=== PATIENT | female | born 1960 | race Two or more races ===

== ENCOUNTER 2024-08-18 11:39 | Inpatient (IN) | payer BC ==
[~2024-08-18] VITALS: Ht 152.4 cm; Wt 122.5 kg
[2024-08-18] MEDS ORDERED: SYNTHROID112 MCG (11:57)
[2024-08-18] MEDS ORDERED: LOSARTAN-HCTZ1 EAC2 (11:57)
[2024-08-18] MEDS ORDERED: WELLBUTRIN XL300 MG (11:57)
[2024-08-18] MEDS ORDERED: MONTELUKAST SODI4 M1 (11:58)
[2024-08-18] MEDS ORDERED: LIPITOR40 MG (11:58)
[2024-08-18] MEDS ORDERED: PLAVIX75 MG (11:58)
[2024-08-18] MEDS ORDERED: FAMOtidine 10 MG/ML (4ML VIAL) IV ONE (12:30)
[2024-08-18] MEDS ORDERED: ONDANSETRON HCL 2 MG/ML VIAL IV ONE (12:30)
[2024-08-18] MEDS ORDERED: 0.9 % SODIUM CHLORIDE 1,000 ML IV ONE (12:30)
[2024-08-18 12:53] LABS: HEMATOCRIT 38.6 % (36.0-45.00); HEMOGLOBIN 12.9 g/dL (12.0-15.00); MEAN CELL VOLUME 79.7 fL (80.00-100.00); MEAN CORPUSCULAR HEMOGLOBIN 26.7 pg (27.00-32.0); MEAN CORPUSCULAR HGB CONC 33.5 g/dl (32.0-36.0); PLATELET COUNT 311 K/uL (150-450); RED BLOOD COUNT 4.84 M/uL (4.00-6.00)
[2024-08-18 13:29] LABS: ALBUMIN 3.3 gm/dL (3.4-5.0); BILIRUBIN TOTAL 0.61 mg/dL (0.3-1.2); CREATININE SERUM 0.49 mg/dL (0.55-1.02); GFR 127.14; GLOBULINA 4.3 G/DL (2.4-3.5); POTASSIUM 3.76 mEq/L (3.5-5.1); TOTAL PROTEIN 7.6 gm/dL (6.4-8.2)
[2024-08-18] MEDS ORDERED: MORPHINE SULFATE 4 MG/ML VIAL IV ONE (14:15)
[2024-08-18 17:46] LABS: ABG PH 7.405 (7.35-7.45)
[2024-08-18 17:47] LABS: ABG PO2 86.5 mmHg (80-100); ABG pCO2 46.8 mmHg (35-45); BASE EXCESS 3.2 mmol/l; BICARBONATE 28.7 mmol/l (23-25); SaO2 96.7 %; Tco2 30.1 mmol/l; allen test SATISFACTORY; o2 32 %; puncture site RADIAL RIGHT
[2024-08-18] MEDS ORDERED: 0.9 % SODIUM CHLORIDE 1,000 ML IV SCH (18:30)
[2024-08-18] MEDS ORDERED: IPRATROPIUM BROMIDE 0.5 MG/2.5 ML AMPUL.NEB IH SCH (18:32)
[2024-08-18] MEDS ORDERED: LEVALBUTEROL HCL 1.25 MG/3 ML SOLUTION IH SCH (18:33)
[2024-08-18] MEDS ORDERED: NITROGLYCERIN IN 5 % DEXTROSE 250 ML IV SCH (18:35)
[2024-08-18] MEDS ORDERED: ATORVASTATIN CALCIUM 40 MG TABLET PO SCH (18:36)
[2024-08-18] MEDS ORDERED: levoFLOXacin IN DEXTROSE 5 % 150 ML IV SCH (18:37)
[2024-08-18] MEDS ORDERED: ENOXAPARIN SODIUM 100 MG/ML SYRINGE SUBCUTANEO SCH (18:41)
[2024-08-18] MEDS ORDERED: INSULIN LISPRO 1,000 UNIT/10 ML UNITS SUBCUTANEO PRN (18:45)
[2024-08-18] MEDS ORDERED: ACETAMINOPHEN 500 MG GEL..CAP PO PRN (18:45)
[2024-08-18] MEDS ORDERED: ONDANSETRON HCL 4 MG in 0.9 % SODIUM CHLORIDE 50 ML IV PRN (18:45)
[2024-08-18] MEDS ORDERED: DEXTROSE 50 % IN WATER 0.5 G/ML DISP.SYRIN IV PRN (18:45)
[2024-08-18] MEDS ORDERED: TICAGRELOR 90 MG TABLET PO ONE (18:45)
[2024-08-18 20:06] LABS: INR 1.08; PROTHROMBIN TIME 11.7 SECONDS (9.0-11.5)
[2024-08-18 20:08] LABS: D DIMER 0.72 MG/L; PARTIAL THROMBOPLASTIN TIME 31.9 SECONDS (22.0-34.0)
[2024-08-18 20:50] VITALS: BP 145/68; O2SAT 94
[2024-08-18 20:51] VITALS: BP 145/68
[2024-08-18] MEDS ORDERED: PANTOPRAZOLE SODIUM 40 MG/VIAL VIAL IV SCH (21:18)
[2024-08-18 21:42] LABS: URINE APPEARANCE Clear; URINE BILIRRUBIN Negative (NEGATIVE); URINE BLOOD Negative; URINE COLOR Yellow; URINE GLUCOSE Negative (NEGATIVE); URINE KETONE 15 (NEGATIVE); URINE LEUKOCYTE Negative; URINE NITRATE Negative; URINE PROTEIN Negative (NEGATIVE); URINE UROBILINOGEN 0.2 E.U./dl
[2024-08-18 21:46] LABS: URINE BACTERIA 1069.6 uL (0.0-1933); URINE EPITHELIAL CELLS 38.3 uL (0.0-38.8); URINE RBC 10.2 uL (0.0-20.8); URINE WBC 40.8 uL (0.0-23.2)
[2024-08-18 21:53] LABS: URINE CAST 0.45 uL (0.0-1.40)
[2024-08-18 23:00] VITALS: BP 140/54; O2SAT 98
[2024-08-19] VITALS (15 sets, daily range): BP systolic 96–139; BP diastolic 53–73; O2SAT 94–99
[2024-08-19] MEDS ORDERED: TICAGRELOR 90 MG TABLET PO SCH (05:00)
[2024-08-19] MEDS ORDERED: LEVOTHYROXINE SODIUM 112 MCG TABLET PO SCH (06:00)
[2024-08-19] MEDS ORDERED: NITROGLYCERIN IN 5 % DEXTROSE 250 ML IV SCH (06:45)
[2024-08-19] MEDS ORDERED: BUTALB/ACETAMINOPHEN/CAFFEINE 1 TAB TABLET PO PRN (07:00)
[2024-08-19 07:16] LABS: CHOL HDL RATIO 2.5 (0-5.0); TSH 2.43 uIU/mL (0.358-3.74)
[2024-08-19] MEDS ORDERED: BUPROPION HCL 150 MG TABLET.SA PO SCH (09:00)
[2024-08-19] MEDS ORDERED: METOPROLOL SUCCINATE 25 MG TAB.SR.24H PO SCH (09:00)
[2024-08-19] MEDS ORDERED: PANTOPRAZOLE SODIUM 40 MG/VIAL VIAL IV SCH (09:00)
[2024-08-19] MEDS ORDERED: METHYLPREDNISOLONE SOD SUCC 40 MG VIAL IV SCH (13:00)
[2024-08-20] VITALS (11 sets, daily range): BP systolic 106–145; BP diastolic 56–78; O2SAT 95–97
[2024-08-20 05:29] LABS: HEMATOCRIT 34.7 % (36.0-45.00); HEMOGLOBIN 11.4 g/dL (12.0-15.00); MEAN CELL VOLUME 80.8 fL (80.00-100.00); MEAN CORPUSCULAR HEMOGLOBIN 26.5 pg (27.00-32.0); MEAN CORPUSCULAR HGB CONC 32.8 g/dl (32.0-36.0); PLATELET COUNT 312 K/uL (150-450); RED BLOOD COUNT 4.29 M/uL (4.00-6.00); RED CELL DISTRIBUTION WIDTH 14.6 % (11.5-14.5)
[2024-08-20 06:13] LABS: ALBUMIN 2.9 gm/dL (3.4-5.0); BILIRUBIN TOTAL 0.33 mg/dL (0.3-1.2); C-REACTIVE PROTEIN 12.2 MG/DL (0.00-0.29); CREATININE SERUM 0.48 mg/dL (0.55-1.02); GFR 130.2; GLOBULINA 4.1 G/DL (2.4-3.5); MAGNESIUM 2.5 mg/dL (1.8-2.4); PHOSPHOROUS 2.7 mg/dL (2.5-4.9); POTASSIUM 3.88 mEq/L (3.5-5.1)
[2024-08-20 06:32] LABS: MYCOPLASMA PNEUMONIAE IGM NON REACTIVE (NO REACTIVE)
[2024-08-20] MEDS ORDERED: LORATADINE 10 MG TABLET PO STA (10:58)
[2024-08-20] MEDS ORDERED: KETOROLAC TROMETHAMINE 30 MG VIAL IM SCH (13:30)
[2024-08-21 07:50] VITALS: BP 126/56; O2SAT 93
[2024-08-21] MEDS ORDERED: ENOXAPARIN SODIUM 40 MG/0.4 ML SYRINGE SUBCUTANEO SCH (09:00)
[2024-08-21] MEDS ORDERED: MEPERIDINE HCL/PF 25 MG/ML VIAL IM PRN (09:45)
[2024-08-21 11:35] VITALS: BP 134/63; O2SAT 97
[2024-08-21 16:00] VITALS: BP 119/57; O2SAT 95
[2024-08-21 16:18] VITALS: O2SAT 90
[2024-08-21 19:22] VITALS: O2SAT 90
[2024-08-22] VITALS (7 sets, daily range): BP systolic 143–179; BP diastolic 67–81; O2SAT 90–100
[2024-08-22] MEDS ORDERED: METHYLPREDNISOLONE SOD SUCC 40 MG VIAL IV SCH (13:00)
[2024-08-22 14:31] LABS: PLATELET ESTIMATE NORMAL (NORMAL)
[2024-08-23] VITALS (8 sets, daily range): BP systolic 140–158; BP diastolic 76–94; O2SAT 90–98
[2024-08-24] VITALS: BP 155/88; O2SAT 94
[2024-08-24 08:00] VITALS: BP 141/67; O2SAT 100
[2024-08-24] MEDS ORDERED: CLOPIDOGREL BISULFATE 75 MG TABLET PO SCH (09:00)
[2024-08-24] MEDS ORDERED: ONDANSETRON HCL 4 MG in 0.9 % SODIUM CHLORIDE 50 ML IV PRN (13:00)
[2024-08-24] MEDS ORDERED: METHYLPREDNISOLONE SOD SUCC 40 MG VIAL IV SCH (13:00)
[2024-08-24 16:00] VITALS: BP 131/69; O2SAT 90; O2SAT 99
[2024-08-24 21:55] VITALS: O2SAT 96
[2024-08-25] VITALS: BP 167/82; O2SAT 95
[2024-08-25 01:13] VITALS: O2SAT 93
[2024-08-25 06:16] VITALS: O2SAT 99
[2024-08-25 08:30] VITALS: O2SAT 92
[2024-08-25 09:00] VITALS: BP 151/53; O2SAT 98
[2024-08-25 12:37] LABS: ABG PH 7.472 (7.35-7.45); ABG PO2 90.2 mmHg (80-100); ABG pCO2 38.1 mmHg (35-45); SaO2 97.6 %
[2024-08-25 12:38] LABS: BASE EXCESS 3.5 mmol/l; BICARBONATE 27.2 mmol/l (23-25); Tco2 28.4 mmol/l; allen test SATISFACTORY; o2 21 %; puncture site RADIAL LEFT
[2024-08-25 16:35] VITALS: BP 149/72; O2SAT 98
[2024-08-25] MEDS ORDERED: PREDNISONE 10 MG TABLET PO STA (21:32)
[2024-08-26 00:20] VITALS: BP 137/69; O2SAT 99
[2024-08-26 00:23] VITALS: O2SAT 92
[2024-08-26 05:30] VITALS: O2SAT 97
[2024-08-26 05:46] LABS: HEMATOCRIT 36.7 % (36.0-45.00); HEMOGLOBIN 12.2 g/dL (12.0-15.00); MEAN CELL VOLUME 80.8 fL (80.00-100.00); MEAN CORPUSCULAR HEMOGLOBIN 26.8 pg (27.00-32.0); MEAN CORPUSCULAR HGB CONC 33.2 g/dl (32.0-36.0); PLATELET COUNT 399 K/uL (150-450); RED BLOOD COUNT 4.54 M/uL (4.00-6.00); RED CELL DISTRIBUTION WIDTH 14.7 % (11.5-14.5)
[2024-08-26 07:02] LABS: ALBUMIN 3.2 gm/dL (3.4-5.0); BILIRUBIN TOTAL 0.26 mg/dL (0.3-1.2); CALCIUM 8.7 mg/dL (8.5-10.1); CREATININE SERUM 0.48 mg/dL (0.55-1.02); GFR 130.2; GLOBULINA 3.1 G/DL (2.4-3.5); MAGNESIUM 2.3 mg/dL (1.8-2.4); PHOSPHOROUS 3.5 mg/dL (2.5-4.9); POTASSIUM 3.84 mEq/L (3.5-5.1); TOTAL PROTEIN 6.3 gm/dL (6.4-8.2)
[2024-08-26 07:11] LABS: C-REACTIVE PROTEIN 0.49 MG/DL (0.00-0.29)
[2024-08-26] MEDS ORDERED: PREDNISONE 10 MG TABLET PO SCH (09:00)
== END 2024-08-26 14:00 | disposition home or self-care (01) | DRG 193 ==
LOC: ER 11:41 → ICU-2 19:20 → SEC-K 08-20 17:26 → SURH 08-21 09:51
PROVIDERS: General Practice; Internal Medicine; Internal Medicine Infectious Disease; ADMIT Internal Medicine; ATTEND Internal Medicine
PROC: BW24ZZZ Computerized Tomography (CT Scan) of Chest and Abdomen (ICD-10-PCS; 2024-08-18)
PROC: B24BZZZ Ultrasonography of Heart with Aorta (ICD-10-PCS; 2024-08-18)
PROC: BW40ZZZ Ultrasonography of Abdomen (ICD-10-PCS; 2024-08-20)
PROC: B32TYZZ Computerized Tomography (CT Scan) of Left Pulmonary Artery using Other Contrast (ICD-10-PCS; 2024-08-20)
PROC: B32SYZZ Computerized Tomography (CT Scan) of Right Pulmonary Artery using Other Contrast (ICD-10-PCS; 2024-08-20)
PROC: 4A12X4Z Monitoring of Cardiac Electrical Activity, External Approach (ICD-10-PCS; principal; 2024-08-21)
DX: J18.9 Pneumonia, unspecified organism (principal); A41.9 Sepsis, unspecified organism; I21.A1 Myocardial infarction type 2; J45.901 Unspecified asthma with (acute) exacerbation; E11.65 Type 2 diabetes mellitus with hyperglycemia; I10 Essential (primary) hypertension; Z79.4 Long term (current) use of insulin; E03.9 Hypothyroidism, unspecified; E78.5 Hyperlipidemia, unspecified
CPT/HCPCS: 71275